=== PATIENT | male | born 1995 | race Caucasian/White ===

== ENCOUNTER 2020-06-07 11:42 | Observation (INO) | payer BC, OTHER ==
[~2020-06-07] VITALS: Ht 170.2 cm; Wt 75.0 kg
[2020-06-07] VITALS (8 sets, daily range): BP systolic 114–130; BP diastolic 63–82; PULSE 50–82; TEMP 97.8–98.5
--- NOTE | 2020-06-07 12:30 | NUR ---
Patient admitted to room 328 from [facility]. Report was not obtained from [facility], but EMS gave update. Ns to [facility] per orders. Vss. Minimal complaints of pain. He denies nausea. He has been NPO.
[2020-06-07 12:56] LABS: BASO % 0.4 % (0.0-2.0); EOS # 0.1 (0.0-0.7); EOS % 1.2 % (0-4.0); GRAN # 5.6 (1.4-6.5); GRAN % 68.8 % (42.2-75.2); HEMATOCRIT 42.8 % (42.0-52.0); HEMOGLOBIN 14.5 g/dl (13.5-18.0); LYMPH # 1.8 (1.2-3.4); LYMPH % 21.5 % (20.0-51.0); MEAN CELL VOLUME 84 fl (80.0-100.0); MEAN CORPUSCULAR HEMOGLOBIN 29 pg (27.0-31.0); MEAN CORPUSCULAR HGB CONC 34 g/dl (33.0-37.0); MEAN PLATELET VOLUME 9.2 fl (7.4-10.4); MONO # 0.7 (0.1-0.6); PLATELET COUNT 254 K/mm3 (130-400); RED BLOOD COUNT 5.07 M/mm3 (4.20-5.60); REDCELL DISTRIBUTION WIDTH-CV 12.5 % (11.5-14.5)
[2020-06-07 12:58] LABS: INR 1.2 (0.8-3.0); PROTHROMBIN TIME 13.3 SECONDS (9.7-12.8)
[2020-06-07 13:00] LABS: ALBUMIN 4.6 gm/dL (3.5-5.0); BILIRUBIN,TOTAL 1.1 mg/dL (0.0-1.0); CALCIUM 9.6 mg/dL (8.4-10.2); CREATININE, serum 1.13 (0.66-1.25); POTASSIUM 4.2 mmol/L (3.4-5.0); TOTAL PROTEIN 7.9 gm/dL (6.4-8.2)
--- NOTE | 2020-06-07 14:22 | NUR ---
Patient to the Or with [facility]. He freshed up prior to Or, brushed his teeth & used surgical scrub. Anesthesia rounded prior to Or.
[2020-06-07] MEDS ORDERED: MOTRIN 600600 MG/TAB PO (16:05)
[2020-06-07] MEDS ORDERED: COLACE 100100 MG/CAP PO (16:06)
[2020-06-07] MEDS ORDERED: NORCO 325 MG-51 TAB PO (16:06)
[2020-06-07] MEDS ORDERED: AMOXICILLIN 8751 TAB PO (16:06)
--- NOTE | 2020-06-07 19:15 | NUR ---
Report received, assumed care for shift mechanic. Assessment complete. Very drowsy and emotional-conversation very scattered and tearful. States the anesthesia is really affecting him. States he is unsure if he can be discharged tonight-states spouse is waiting in parking lot. Discussed discharge criteria-will attempt to tolerate some PO now and take a pain pill. Denies any questions/concerns. Instructed to call for questions/concersn/if needing bathroom. Verbalizes understanding. Call light in reach. Will monitor.
--- NOTE | 2020-06-07 19:32 | NUR ---
Patient has been resting post op. Vss. He has no interest in food. Denies the need for pain medication at this time. Bedside report to Kyra to resume cares.
--- NOTE | 2020-06-07 21:55 | NUR ---
Patient very tearful stating he doesnt know why he is crying but he is nervous to go home tonight due to pain and feeling out of sorts. States he has a new infant at home and he doesnt think he can get around alone. Has only tolerated a little PO-states hes just not hungry and to uncomfortable. Dr Gonzalez notified and new orders received to keep overnight.
--- NOTE | 2020-06-07 23:15 | NUR ---
Called with c/o pain to abdomen-intermittent cramp/thorbbing-rating pain 6/10 on pain scale. Hydrocodone given per dr order. Up to ambulate at this time with this nurse as stand by. Ambulated approx 1000feet. Tolerated well. Denies any other c/o at this time. Will monitor.
[2020-06-08 00:07] VITALS: BP 116/60; PULSE 84; TEMP 99
[2020-06-08 04:03] VITALS: BP 109/51; PULSE 70; TEMP 98
--- NOTE | 2020-06-08 05:51 | NUR ---
Up to ambulate in hallway. Ambulated approx 1000 feet. Tolerated well. States he feels much better today. Denies nausea/shortness of breath. Call light in reach. Will monitor.
--- NOTE | 2020-06-08 07:05 | NUR ---
Lying in bed with eyes open. Alert and oriented x4. Rates pain in abd 3/10 at this time, increases with certain movements. Has passed gas once. Lap sites x3 to abd with all edges well approximated, no redness/swelling/discharge noted. Patient hopeful to go home today. Will get up and ambulate more at this time. Denies additional needs.
[2020-06-08 07:38] VITALS: BP 122/72; PULSE 69; TEMP 98.3
--- NOTE | 2020-06-08 08:35 | NUR ---
Patient up ambulating in room. Says that the pain is increasing some and would like pain medication. Administer pain medication as prescribed. Patient denies additional needs at this time.
--- NOTE | 2020-06-08 10:56 | NUR ---
Patient returns from nephrostomy tube placement at 1050.
--- NOTE | 2020-06-08 11:15 | NUR ---
Lying in bed with eyes closed, open as this nurse enters room. Minimal pain. Has been in halls ambulating and took shower. Minimal pain at this time. Denies needs.
[2020-06-08 11:16] VITALS: BP 113/68; PULSE 54; TEMP 97.8
--- NOTE | 2020-06-08 13:13 | NUR ---
Administer Frost as prescribed. Patient having minimal pain at this time but is being discharged and with all the moving he would like pain med to get ahead of pain.
--- NOTE | 2020-06-08 13:20 | NUR ---
Review all discharge instructions with the patient. Denies questions and signs discharge paperwork. Discharge packet provided to the patient. Patient's is here dropping off his clothes at this time and then she is ready to pick him up. Explain that once he is done getting dressed to let us know and we will help him to the vehicle. JD Romeo, obtaining clothes from ER entrance.
--- NOTE | 2020-06-08 13:43 | NUR ---
Patient done getting dressed and calls that he is ready to be assisted to 's vehicle. Patient assisted out to POV with all belongings by JD Romeo.
--- NOTE | 2020-06-08 14:24 | NUR ---
Plan to return home in [facility] with Angelique Patient reports that he does not have a PCP but would be okay with a referral in [place]. Patient reports that he use [facility] in [place], [place] for Medications. Patient reports that he has transportation and does not use any DME use or additional services. Will follow for additional care supports. Educated on services.
== END 2020-06-08 13:43 | disposition home or self-care (01) ==
LOC: JCC 11:42 → SDCO 11:42 → JCC 12:15 → SDCO 14:45 → JCC 06-08 13:43
PROVIDERS: ADMIT Surgery
DX: K35.80 Unspecified acute appendicitis (principal); Z91.018 Allergy to other foods
CPT/HCPCS: G0378; G0379; J1100; J1170; J1885; J2175; J2250; J2370; J2405; J2543; J2704; J3010; J7030